=== PATIENT | female | born 1965 | race Caucasian/White ===

== ENCOUNTER 2017-12-13 11:55 | Inpatient (IN) ==
[2017-12-13] MEDS ORDERED: Pregabalin 75 MG CAPSULE PO ONE (12:30)
[2017-12-13] MEDS ORDERED: Famotidine 20 MG/2 ML VIAL IVP ONE (12:30)
[2017-12-13] MEDS ORDERED: Celecoxib 100 MG CAPSULE PO ONE (12:30)
[2017-12-13] MEDS ORDERED: Ringers Solution, Lactated 1,000 ML IVC SCH (12:30)
[2017-12-13] MEDS ORDERED: Acetaminophen IV 1,000 MG/100 ML INFUS..BTL IVPB ONE (12:30)
[2017-12-13] MEDS ORDERED: cefOXitin 2,000 MG in Water for inj. (sterile) 20 ML 20 ML IVP ONE (12:33)
[2017-12-13] MEDS ORDERED: Albuterol 2.5 MG/3 ML NEBULIZER IH ONE ×2 (12:33→13:43)
[2017-12-13] MEDS ORDERED: Neostigmine Methylsulfate 3 MG/3 ML SYRINGE ONE (12:48)
--- NOTE | 2017-12-13 13:32 | Anesthesia Evaluation PreOp ---
Date of Encounter: 12/13/17 Time of Encounter: 13:30 - Past History Planned Operation: Robotic Sigmoid Colon Resection Cardiac History: HTN, Hyperlipidemia Pulmonary History: Smoker SKEIN DYER History: Denies Any Significant HX Other Medical History: Diabetes Type II Anesthesia History: No Prior Anesthetic Complications : No Alcohol Use: none Drug use: none Medications and Allergies Atorvastatin [Lipitor] 40 mg PO HS 12/13/17 [History] Lisinopril [Zestril] 10 mg PO HS 12/13/17 [History] Metformin HCl [Metformin HCl] 1,000 mg PO BID 12/13/17 [History] 3 Allergy/AdvReac Type Severity Reaction Status Date / Time dexamethasone Allergy Difficulty Verified 12/13/17 12:41 Breathing nalbuphine [From Nubain] AdvReac See Verified 12/13/17 12:41 Comments - Meds/Allergy Pre-op Review Medications Reviewed: Yes Allergies Reviewed: Yes Beta Blockers on Current Med List: No Anesthesia Results - Labs Laboratory Tests 11/09/17 12/12/17 12/12/17 12:51 10:58 10:58 Hgb 15.1 Hct 46.5 H Plt Count 229 Sodium 135 L Potassium 4.0 BUN 8 Creatinine 0.60 - Imaging EKG: report reviewed (ST) Additional studies: Stress Test Negative 2017 EF 70% Anesthesia Exam O2 Sat Height 1.63 m Height 1.63 m Height 1.63 m Weight 75.75 kg Weight 75.75 kg Weight 75.75 kg O2 Sat by Pulse Oximetry 97 O2 Sat by Pulse Oximetry 97 Vital Signs Temp Pulse Resp BP Pulse Ox 98.1 F 106 18 119/73 97 12/13/17 12:19 12/13/17 12:19 12/13/17 12:19 12/13/17 12:19 12/13/17 12:19 Height: 5'4 Weight: 167 lbs NPO (# of Hours): MN Pain Scale: 0 - HEENT Pupil (Motor): Pupils equal, EOMI Mallampati: III Teeth: Normal Oral Opening: Less than or equal to 3 - SKEIN DYER LOC: Oriented SKEIN DYER Motor: Normal RUE, Normal LUE, Normal RLE, Normal LLE, Normal Face SKEIN DYER Sensory: Normal: RUE, LUE, RLE, LLE, Face - Cardiac Rhythm: Regular Murmur: None JVD: No Carotid Bruit: No - Pulmonary Breath Sounds: bilateral Clear Respiratory Effort: Symmetrical Anesthesia Assess/Plan ASA Score: 3 (HTN Tobacco DM) Modified Nicole Scale for Level of Consciousness: Cooperative, oriented, and tranquil Anesthetic Plan: General Monitoring Plan: Standard Monitors Recovery Plan: PACU (Discussed GA, agrees to proceed)
[2017-12-13] MEDS ORDERED: Lidocaine -MPF 2% 2 ML VIAL ONE ×2 (13:39→14:35)
[2017-12-13] MEDS ORDERED: *HR* FentaNYL (PF) 100 MCG/2 ML VIAL ONE ×2 (13:39→15:44)
[2017-12-13] MEDS ORDERED: Lidocaine -MPF 4% 5 ML AMPUL ONE (13:39)
[2017-12-13] MEDS ORDERED: *HR* Propofol 200 MG/20 ML VIAL IVP ONE (13:40)
[2017-12-13] MEDS ORDERED: *HR* Midazolam HCl 2 MG/2 ML VIAL ONE (13:40)
[2017-12-13] MEDS ORDERED: *HR* Promethazine 25 MG/ML VIAL IVP PRN (13:43)
[2017-12-13] MEDS ORDERED: *HR* OxyCODONE Immed Rel 5 MG TABLET PO PRN (13:43)
[2017-12-13] MEDS ORDERED: *HR* HYDROmorphone 2 MG TABLET PO PRN (13:43)
[2017-12-13] MEDS ORDERED: *HR* HYDROmorphone (PF) 1 MG/ML SYRINGE IVP PRN (13:43)
[2017-12-13] MEDS ORDERED: *HR* Labetalol 20 MG/4 ML SYRINGE IVP PRN (13:43)
--- NOTE | 2017-12-13 13:59 | History & Physical Report ---
Date of Encounter: 12/13/17 Time of Encounter: 13:58 24 Hour HP Update - Instructions Instructions: If the History and Physical is less than 30 days old and was completed prior to A.M. admission and or procedure and has NOT been updated on calendar day of procedure please complete this update prior to performing procedure. - Update Patient reports changes in Medical Condition: No Changes in examination, assessment, or condition: No Changes in Medication: No Preop tests/diagnostics Reviewed: Yes Surgery Remains Indicated: Yes Consent for Planned Operative Procedure(s) Verified: Yes - Pre-Operative Checklist Preoperative Checklist Indicated: Yes Prophylactic Antibiotic Ordered: Yes Home Medications Include Beta Zeenat: No
[2017-12-13] MEDS ORDERED: Esmolol 100 MG/10 ML VIAL IVP ONE (14:35)
[2017-12-13] MEDS ORDERED: Ketorolac 30 MG/ML VIAL ONE (14:35)
[2017-12-13] MEDS ORDERED: *HR* PHENYLEPHRINE 1,000 MCG/10 ML SYRINGE IVP ONE (14:45)
[2017-12-13] MEDS ORDERED: *HR* Rocuronium Bromide 50 MG/5 ML VIAL ONE (15:44)
--- NOTE | 2017-12-13 16:57 | Anesthesia Evaluation Post Op ---
Date of Encounter: 12/13/17 Time of Encounter: 17:00 - Vital Signs Vital Signs: Vital Signs/O2 Sat/Glucose, Most Current Temp Pulse Resp BP Pulse Ox 12/13/17 16:48 94 18 147/89 92 12/13/17 16:38 92 18 132/98 94 12/13/17 16:28 97.8 F 96 18 136/101 96 12/13/17 12:57 18 97 - Lungs Lungs: Clear Ascult./Percussion - Airway Airway: Non-obstructed - Cardiovascular Regular Rate - Mental Status Mental Status: Alert & Oriented, Answers Appropriately - Pain Pain Scale: 0 - Nausea Vomiting Nausea Vomiting: Not Present - Hydration Hydration: Tolerates oral liquids - Discharge PostOp Status: Transfer Patient to floor
[2017-12-13] MEDS ORDERED: MORPHINE SUL Oral CONC 10 MG/0.5 ML ORAL.SYG PO PRN (18:21)
[2017-12-13] MEDS ORDERED: D5% in Water 1,000 ML IVC PRN (18:21)
[2017-12-13] MEDS ORDERED: Ondansetron 4 MG/2 ML VIAL IVP PRN (18:21)
[2017-12-13] MEDS ORDERED: Naloxone 0.4 MG/ML INJ IVP PRN (18:21)
[2017-12-13] MEDS ORDERED: Acetaminophen 325 MG TABLET PO PRN (18:21)
[2017-12-13] MEDS ORDERED: OXYCODONE Oral CONC 10 MG/0.5 ML ORAL.SYG SL PRN (18:21)
[2017-12-13] MEDS ORDERED: Dextrose Gel 15 GM/37.5 ML TUBE PO PRN ×2 (18:21)
[2017-12-13] MEDS ORDERED: *HR* Dextrose 50 % in Water (Syg) 50 ML SYRINGE IVP PRN (18:21)
[2017-12-13 18:51] VITALS: BP 145/89
[2017-12-13] MEDS: 0.9 % Sodium Chloride 1,000 ML IVC SCH (21:00)
[2017-12-13] MEDS ORDERED: Insulin LISPRO 300 UNITS/3 ML VIAL SQ SCH (21:00)
[2017-12-13] MEDS: Ketorolac 15 MG/ML VIAL IVP SCH (21:06)
[2017-12-13] MEDS: Insulin LISPRO 300 UNITS/3 ML VIAL SQ SCH (21:08)
[2017-12-14] MEDS: Ketorolac 15 MG/ML VIAL IVP SCH ×3 (01:03→13:08)
[2017-12-14] MEDS ORDERED: *HR* Metformin 500 MG TABLET PO SCH (08:00)
[2017-12-14] MEDS: Insulin LISPRO 300 UNITS/3 ML VIAL SQ SCH ×2 (08:10→12:42)
[2017-12-14 11:41] LABS: Basophils # 0.1 K/mcL (0.0-0.2); Basophils % 0.7 %; Eosinophils # 0.1 K/mcL (0.0-0.6); Eosinophils % 1.3 %; Hematocrit 36.1 % (35.3-44.9); Hemoglobin 11.9 g/dL (11.5-15.4); Immature Granulocytes % 0.5 % (0-4); Immature Platelets 9.2 % (1.1-6.1); Lymphocytes # 4.4 K/mcL (0.6-4.6); Lymphocytes % 48.1 %; Mean Platelet Volume 11.7 fL (9.4-12.4); Monocytes # 0.8 K/mcL (0.0-1.3); Monocytes % 8.2 %; Neutrophils # 3.8 K/mcL (1.6-8.9); Platelet Count 184 K/mcL (140-400); Red Cell Distribution Width 14.8 % (11.5-14.5); Segmented Neutrophils % 41.2 %
[2017-12-14 12:22] LABS: BUN/Creatinine Ratio 16 (6-26); Blood Urea Nitrogen 9 mg/dL (6-20); Calcium 8.1 mg/dL (8.6-10.3); Carbon Dioxide 21 mEq/L (23-29); Chloride 108 mEq/L (98-107); Glucose 212 mg/dL (70-105); Osmolality,Calculated 287 (280-300); Potassium 3.5 mEq/L (3.5-5.1); Sodium 136 mEq/L (136-145); eGFR For Non-African Americans > 60 (> 60)
--- NOTE | 2017-12-14 12:35 | Discharge Summary ---
Orders not resulted at time of discharge: Pending orders 12/13/17 16:42 Surgical Pathology [PTH] Routine Date of Encounter: 12/14/17 Time of Encounter: 10:00 - Discharge Diagnosis (1) History of colonic diverticulitis Priority: Primary Status: Acute Comments: s/p robotic sigmoid colon resection (2) Diabetes Priority: Secondary Status: Acute Qualifiers: Diabetes mellitus type: type 2 Diabetes mellitus technician terminal and repeater insulin use: unspecified fpc insulin use status Diabetes mellitus complication status: with unspecified complications Qualified Code(s): E11.8 - Type 2 diabetes mellitus with unspecified complications (3) Tobacco abuse disorder Priority: Secondary Status: Chronic General Surgery Exam Initial Vital Signs Temp Pulse Resp BP Pulse Ox 98.1 F 106 18 119/73 97 12/13/17 12:19 12/13/17 12:19 12/13/17 12:19 12/13/17 12:19 12/13/17 12:19 VITAL SIGNS: Reviewed. See [facility] GENERAL: In no apparent distress. Sitting upright in chair at the edge of bed with her feet propped up on the bed. HEENT: Normocephalic, atraumatic, pupils are equal and reactive, extraocular motions intact, oropharynx is pink and moist, there is no neck adenopathy or JVD noted. CHEST/RESPIRATORY: The thorax is free from signs of trauma. Lung sounds: clear to auscultation, normal respiratory effort CARDIAC: Regular rate and rhythm. Normal S1 and S2, without murmurs, gallops, or rubs. VASCULAR: No Edema. 2+ peripheral pulses. ABDOMEN: soft, expected postoperative tenderness, active bowel sounds, positive flatus INCISION: Surgical incision is clean, dry, and intact. There are no signs of cellulitis or infection noted. MUSCULOSKELETAL: Good range of motion of all major joints. Extremities without clubbing, cyanosis or edema. NEUROLOGIC EXAM: Alert and oriented x 3. Speech normal. Follows commands. PSYCHIATRIC: Mood normal. SKIN: No rash or lesions. - Hospital Course Hospital course: Ms. Mcguire is a 52 year old female who underwent elective robotic sigmoid colon resection for history of diverticulitis. She is ambulating and voiding without difficulty, tolerating a diet without nausea or vomiting, vital signs are stable, and she is afebrile. We will begin discharge planning to home with follow-up in the office in approximately 2 weeks. Time spent discussing smoking cessation with patient: 3 to 10 minutes - Time Spent with Patient Total time spent providing and/or coordinating discharge services: - Discharge Medications Prescriptions: OxyCODONE/APAP 5/325 [Percocet 5/325 MG] 1 each PO Q6HR PRN 7 Days #28 tablet PRN Reason: Pain Docusate Sodium [Colace] 100 mg PO BID PRN #30 capsule PRN Reason: Constipation Ibuprofen 800 mg PO Q8H PRN #30 tablet PRN Reason: Postsurgical pain Home Medications: Atorvastatin [Lipitor] 40 mg PO HS 12/13/17 [History] Lisinopril [Zestril] 10 mg PO HS 12/13/17 [History] Metformin HCl 1,000 mg PO BID 12/13/17 [History] Docusate Sodium [Colace] 100 mg PO BID PRN #30 capsule 12/14/17 [Rx] Ibuprofen 800 mg PO Q8H PRN #30 tablet 12/14/17 [Rx] OxyCODONE/APAP 5/325 [Percocet 5/325 MG] 1 each PO Q6HR PRN 7 Days #28 tablet 12/14/17 [Rx] Allergies/Adverse Reactions: Allergy/AdvReac Type Severity Reaction Status Date / Time dexamethasone Allergy Difficulty Verified 12/13/17 12:41 Breathing nalbuphine [From Nubain] AdvReac See Verified 12/13/17 12:41 Comments Date of admission: 12/13/17 17:34 Primary care physician: Cheryl Dietrich MD Discharging clinician: Rubina York Anticipated date of discharge: 12/14/17 Labs on day of discharge: Labs from last 24 hours 12/14/17 12/14/17 12/13/17 04:57 04:57 12:16 WBC 9.2 RBC 4.10 Hgb 11.9 D Hct 36.1 MCV 88.0 MCH 29.0 MCHC 33.0 RDW 14.8 H Plt Count 184 MPV 11.7 Immature Gran % 0.5 Seg Neutrophils % 41.2 Lymphocytes % 48.1 Monocytes % 8.2 Eosinophils % 1.3 Basophils % 0.7 Neutrophils # 3.8 Lymphocytes # 4.4 Monocytes # 0.8 Eosinophils # 0.1 Basophils # 0.1 Immature Plt Fraction 9.2 H Sodium 136 Potassium 3.5 Chloride 108 H Carbon Dioxide 21 L BUN 9 Creatinine 0.58 L Est GFR ( Amer) > 60 Est GFR (Non-Af Amer) > 60 BUN/Creatinine Ratio 16 Glucose 212 H POC Glucose 233 H Calculated Osmolality 287 Calcium 8.1 L - Patient Status Disposition: Home, Self-Care Condition: Good Functional capacity at discharge: independent ambulation Overall status at discharge: patient is progressing back to baseline - Discharge Instructions Instructions: Colectomy (DC) Follow Up With: Cheryl Dietrich MD [Primary Care Provider] - Rubina York CNP [Advanced Practice Nurse] - 12/29/17 8:30 am Additional Instructions: General Surgical Discharge Instructions 1. No pushing, pulling, or lifting greater than 15 lbs for 2-4 weeks (depending upon procedure). 2. You may shower beginning today, but no tub baths, soaking, or swimming for 2 weeks. 3. You may resume driving when you are off narcotics and are safe to react in a car. 4. Take ibuprofen every 8 hours for discomfort. If this does not relieve discomfort, you may take the as needed Percocet. Take narcotics as directed. Do not take more narcotics then directed and do not share your narcotics with any other person. Do not drink alcohol while on narcotics. 5. Take stool softeners (Colace) or a water based laxative (Miralax) while taking narcotics. You may hold for loose stools. 6. Report any fevers greater than 100.5F, increase abdominal discomfort, drainage that looks like pus, increased redness or pain at the surgical site, or any vomiting. 7. Report any pain in the calves, shortness of breath, or rapid heartbeat. 8. Follow-up in the office as directed. 9. If you were prescribed antibiotics, do not stop them without talking to your provider. - Diet and Activity Activity: increase activity as tolerated Diet: other (soft diet)
[2017-12-14] MEDS: 0.9 % Sodium Chloride 1,000 ML IVC SCH (12:43)
[2017-12-14] MEDS ORDERED: *HR* Metformin 500 MG TABLET PO ONE (13:28)
[2017-12-14] MEDS ORDERED: Ketorolac 15 MG/ML VIAL IVP ONE (13:28)
--- NOTE | 2017-12-15 07:55 | Operative Note ---
Date of procedure: 12/13/17 Pre-op diagnosis: Sigmoid Diverticulitis Post-op diagnosis: same Procedure: Robotic Sigmoid Resection with 29 mm EEA stapled anastomosis Anesthesia: GETA Surgeon: Carrington Vizcarra Was there an accounts payable assistant present: Yes Risk Developer: Lizbeth Cho Estimated blood loss (cc): 20 Specimen: Sigmoid colon Condition: stable Disposition: same day Procedure in Detail: After informed consent, patient taken operating room placed supine position. After adequate sedation anesthesia patient was placed in a lithotomy position. After proper timeout a 12 mm cannula site was placed right superior to the umbilicus. Pneumoperitoneum was greater. A 13 mm cannula was placed in right lower quadrant. 5 mm camera was placed in the right upper quadrant. An 8 mm cannula was placed in subxiphoid region followed by another 8 mm in the left low er quadrant. Patient was placed in a headdown position. The robot was docked over the patient's left hip. Small bowel swept out of the pelvis. Rectosigmoid colon was then grasped and retracted cephalad. The peritoneum was then scored level of the sacral promontory. The left ureter was identified and kept on harm's way. The inferior mesenteric artery was then taken with a vessel sealer. The lateral rectosigmoid stalks were taken down the vessel sealer. The dissection was carried out down to approximate 4 cm above the pelvic floor. Rectosigmoid colon was dissected free from the retro-pubic tubercle region. Once it was freed a 45 mm robotic Endo staplers fired across the rectum. Once it was retracted and area was demarcated on the sigmoid colon for transection. Indocyanine green was infused and we had excellent perfusion. The splenic flexure was also taken down and mobilized. This mobilization allowed for less tension on the anastomosis. A counterincision was made in the suprapubic region. Dissection carried down the anterior rectus sheath. The rectus muscles were then divided in the midline with Lucy clamp. Once they were split the rectosigmoid colon was delivered. Juliet bowel clamps are used to place across the colon proximal and distal and transected. Allis clamps are placed on the bowel and then a pursestring suture device placed on the colon. 3-0 Prolene suture was passed. A pursestring sutures and created and a 29 mm EEA anvil was placed. Suture was tied and secured. Colon was then placed back in the pelvis. The stapler was passed through the anal canal and to the rectal stump and then the spear was placed through the staple line. The anvil was then connected secured and fired. There were 2 excellent donuts. There were several 2-0 silk sutures used to buttress the staple line. A leak test revealed no leak. At that point the procedure was terminated. All incisions are closed with 0 Vicryl suture and 4-0 Vicryl suture. Marcaine was inserted in the Pfannenstiel incision. He tolerated the procedure well.
== END 2017-12-14 13:29 | disposition home or self-care (01) | DRG 331 ==
LOC: SAMDAY 11:55 → 3ANU 17:34
PROVIDERS: ADMIT Surgery; ATTEND Surgery

== ENCOUNTER 2020-05-09 18:50 | Observation (INO) ==
[2020-05-09] MEDS ORDERED: Naloxone 0.4 MG/ML INJ IVP PRN (21:31)
[2020-05-09] MEDS ORDERED: Nitroglycerin 0.4 MG TAB.SUBL SL PRN (22:55)
[2020-05-09] MEDS ORDERED: Perflutren Lipid Microsphere 1.3 ML in 0.9 % Sodium Chloride 8.7 ML IVP PRN (22:55)
[2020-05-09] MEDS ORDERED: Ondansetron 4 MG/2 ML VIAL IVP PRN (23:08)
[2020-05-09] MEDS ORDERED: D5% in Water 1,000 ML IVC PRN (23:19)
[2020-05-09] MEDS ORDERED: *HR* Dextrose 50 % in Water (Vial) 50 ML VIAL IVP PRN (23:19)
[2020-05-09] MEDS ORDERED: Dextrose Gel 15 GM/37.5 ML TUBE PO PRN ×2 (23:19)
[2020-05-10] MEDS: Insulin LISPRO 300 UNITS/3 ML VIAL SUBQ SCH ×4 (00:17→18:58)
[2020-05-10] MEDS: *HR* Heparin 5,000 UNIT/ML VIAL SQ SCH ×2 (05:20→13:38)
[2020-05-10 05:21] LABS: Hematocrit 40.6 % (35.3-44.9); Hemoglobin 13.7 g/dL (11.5-15.4); Mean Corpuscular HGB Conc 33.7 g/dL (31.6-35.5); Mean Corpuscular Hemoglobin 30.1 pg (28.0-33.3); Mean Corpuscular Volume 89.2 fL (83.0-100.0); Mean Platelet Volume 11.2 fL (9.4-12.4); Platelet Count 256 K/mcL (140-400); Red Blood Count 4.55 M/mcL (3.82-4.97); Red Cell Distribution Width 13.8 % (11.5-14.5); White Blood Count 10.5 K/mcL (4.3-11.1)
[2020-05-10 05:39] LABS: BUN/Creatinine Ratio 19 (6-26); Blood Urea Nitrogen 12 mg/dL (6-20); Calcium 9.7 mg/dL (8.6-10.3); Carbon Dioxide 26 mEq/L (23-29); Chloride 106 mEq/L (98-107); Glucose 219 mg/dL (70-105); Osmolality,Calculated 294 (280-300); Potassium 3.9 mEq/L (3.5-5.1); Sodium 139 mEq/L (136-145); eGFR For African Americans > 60 (> 60); eGFR For Non-African Americans > 60 (> 60)
[2020-05-10 05:40] LABS: Chol/HDL Ratio 5.1 (0-4.9); Magnesium 1.9 mg/dL (1.6-2.6)
[2020-05-10 07:10] LABS: Estimated Average Glucose 189 mg/dl; Hemoglobin A1C 8.2 %
[2020-05-10] MEDS ORDERED: Regadenoson 0.4 MG/5 ML SYRINGE IVP ONE (07:40)
[2020-05-10] MEDS ORDERED: GlipiZIDE 5 MG TABLET PO SCH (09:00)
[2020-05-10] MEDS ORDERED: Aspirin Enteric Coated 81 MG Tablet PO SCH (09:00)
[2020-05-10 18:49] VITALS: BP 126/66
[2020-05-10] MEDS ORDERED: lisinopriL 10 MG TABLET PO SCH (21:00)
== END 2020-05-10 19:38 | disposition left against medical advice (07) ==
LOC: 3BNU → SUATTDRO 21:16
PROVIDERS: ADMIT Family Medicine; ATTEND Student in an Organized Health Care Education/Training Program